=== PATIENT | male | born 1960 | race Caucasian/White ===

== ENCOUNTER → 2016-08-08 | Outpatient (CLI) | payer MEDICARE | DX: S92.901A Unspecified fracture of right foot, initial encounter for closed fracture (principal); S92.002A Unspecified fracture of left calcaneus, initial encounter for closed fracture | CPT/HCPCS: 73700 ==

== ENCOUNTER → 2020-11-16 | Outpatient (CLI) | payer OTHER | LOC: EMI 11-04 13:00 → MRI 16:32 → EMI 16:45 | DX: M54.5 Low back pain (principal); M47.26 Other spondylosis with radiculopathy, lumbar region; G89.29 Other chronic pain; M47.817 Spondylosis without myelopathy or radiculopathy, lumbosacral region | CPT/HCPCS: 72148 ==